=== PATIENT | female | born 1950 | race Caucasian/White ===

== ENCOUNTER → 2016-08-01 | Outpatient (CLI) | payer OTHER, MEDICARE ==
--- NOTE | 2016-08-02 00:02 | DX ---
DEXA Bone Mineral Densitometry Clinical Indications: Screening. Comparison: May 28, 2014 Technique: Bone Mineral Densitometry (BMD) by Dual Energy X-Ray Absorptiometry (DEXA) was performed utilizing the [employer] scanner. The lumbar spine was evaluated in the AP projection. The bilat eral hips and left forearm were evaluated in the AP projection. Vertebral fracture assessment was als o performed. AP Lumbar Spine: The L1, L2, L3 and L4 vertebral bodies are evaluated. BMD: 1.12 gm/cm2 T-score: -0.5 SD Z-score: 0.7 SD No significant change since 2013. AP left Hip: BMD: 0.84 gm/cm2 T-score: -1.4 SD Z-score: -0.2 SD No significant change. AP right Hip: BMD: 0.85 gm/cm2 T-score: -1.3 SD Z-score: -0.1 SD No significant change. AP right Forearm: BMD: 0.71 gm/cm2 T-score: -1.9 SD Z-score: -0.5 SD Interval significant change of 8.2% decrease. Vertebral Fracture Assessment: No significant fracture deformity Conclusion: Considering the lowest measured site, patient is osteopenic with significant interval d ecrease in bone density at the right forearm.. The ten year risk for any major osteoporotic fracture is 14.6 % and for a hip fracture is 1.5 %. Any bone loss in this patient is probably related to aging or estrogen deficiency. Recommendations: To prevent osteoporosis and to promote bone density, consider the following recommendations: 1. Pursue a regular regimen of weightbearing and muscle strengthening exercises in order to reduce t he risk of falls and fracture (as tolerated by the patient's general medical condition). 2. Ensure that total daily dietary calcium intake is maximized. 3. Check serum hydroxy vitamin D3 (normal >30ng/ml). 4. Ensure daily intake of vitamin D is 800 international units. 5. Consider follow-up DEXA scan in two years to assess the rate of bone loss in this patient. 6. Consider excluding common secondary causes of bone loss. Laboratory evaluation might include CBC , TSH, calcium, phosphorous, albumin, creatinine, alkaline phosphatase, PTH, serum, electrophoresis ( SPEP or UPEP), and antitissue transglutaminase antibody levels (celiac disease), and hydroxy vitamin D3, as well as a 24-hour urine calcium.
== END ==
LOC: FIMAGING 09:48
PROVIDERS: ATTEND Obstetrics & Gynecology
DX: Z13.820 Encounter for screening for osteoporosis (principal); M85.80 Other specified disorders of bone density and structure, unspecified site

== ENCOUNTER → 2016-11-24 | Outpatient (CLI) | payer OTHER, MEDICARE | LOC: FIMAGING 14:59 | PROVIDERS: ATTEND Obstetrics & Gynecology | DX: Z12.31 Encounter for screening mammogram for malignant neoplasm of breast (principal); Z80.3 Family history of malignant neoplasm of breast | CPT/HCPCS: G0202 ==

== ENCOUNTER → 2017-12-13 | Outpatient (CLI) | payer OTHER, MEDICARE | LOC: FIMAGING 10:59 | PROVIDERS: ATTEND Internal Medicine | DX: Z12.31 Encounter for screening mammogram for malignant neoplasm of breast (principal); Z80.3 Family history of malignant neoplasm of breast ==

== ENCOUNTER → 2018-12-14 | Outpatient (CLI) | payer OTHER, MEDICARE | LOC: FIMAGING 15:02 ==